=== PATIENT | female | born 1985 | race Caucasian/White ===

== ENCOUNTER 2016-02-09 18:17 | Emergency (ER) | payer OTHER ==
[~2016-02-09] VITALS: Ht 162.6 cm; Wt 88.9 kg
[2016-02-09] MEDS ORDERED: BACTRIM DS TAB1 EACH PO (18:21)
[2016-02-09 19:34] VITALS: BP 156/87
== END 2016-02-09 19:36 | disposition home or self-care (01) ==
LOC: ER 18:17
DX: L02.214 Cutaneous abscess of groin (principal)

== ENCOUNTER 2017-09-14 20:09 | Emergency (ER) | payer OTHER ==
[~2017-09-14] VITALS: Ht 162.6 cm; Wt 81.7 kg
[~2017-09-14 20:09] MED LIST: BACTRIM DS TAB1 EACH PO
[2017-09-14] MEDS ORDERED: METFORMIN HCL500 MG PO (20:31)
[2017-09-14] MEDS ORDERED: BAYER CHEWABLE81 MG PO (20:31)
[2017-09-14] MEDS ORDERED: PRENATAL PO (20:31)
[2017-09-14 20:46] LABS: ABSOLUTE NEUTROPHILS 4.6 thou/uL (1.4-8.2); BASOPHILS 0.3 % (0.0-2.0); EOSINOPHILS 0.9 % (0.0-3.0); HEMOGLOBIN 11.2 gm/dL (12.0-15.0); LYMPHOCYTES 34.1 % (24.0-44.0); MCH 30.7 pg (26.0-34.0); MCV 87.8 fL (80.0-100.0); MONOCYTES 7.5 % (1.0-8.0); PLATELET COUNT 245 thou/uL (150-400); POLYS 57.2 % (36.0-66.0); RBC 3.65 mil/uL (4.20-5.00); RDW 12.8 % (10.5-14.5); WBC 8.1 thou/uL (4.0-11.0)
[2017-09-14 20:53] LABS: CALCIUM 9.1 mg/dL (8.5-10.1); CREATININE 0.5 mg/dL (0.6-1.0); POTASSIUM 3.6 mmol/L (3.5-5.1)
[2017-09-14 20:59] LABS: ALBUMIN 3.2 g/dL (3.4-5.0); TOTAL BILIRUBIN 0.2 mg/dL (<0.1-1.0); TOTAL PROTEIN 7.4 g/dL (6.4-8.2)
[2017-09-14 21:12] LABS: URINE BILIRUBIN NEGATIVE (Negative); URINE BLOOD NEGATIVE (Negative); URINE CLARITY CLEAR; URINE COLOR YELLOW; URINE GLUCOSE-RANDOM* NEGATIVE (Negative); URINE KETONES NEGATIVE (Negative); URINE LEUKOCYTES-REFLEX NEGATIVE (Negative); URINE NITRITE-REFLEX NEGATIVE (Negative); URINE PROTEIN (DIPSTICK) NEGATIVE (Negative); URINE SPECIFIC GRAVITY 1.015 (1.005-1.035); URINE UROBILINOGEN 0.2 E.U./dl (0.2-1.0)
[2017-09-14] MEDS ORDERED: NORCO 5-325 TA1 EACH PO (22:49)
[2017-09-14 22:55] VITALS: BP 117/92
[2017-09-17 14:10] LABS: NEISSERIA GONORRHEA-PCR Negative (Negative)
== END 2017-09-14 22:56 | disposition home or self-care (01) ==
LOC: ER 20:09
PROVIDERS: Physician Assistant
DX: O26.892 Other specified pregnancy related conditions, second trimester (principal); Z3A.18 18 weeks gestation of pregnancy; R10.32 Left lower quadrant pain; Z87.891 Personal history of nicotine dependence